=== PATIENT | male | born 1970 | race Caucasian/White ===

== ENCOUNTER 2020-02-14 13:17 | Emergency (ER) | payer BC ==
[2020-02-14] MEDS ORDERED: LABETALOL HCL INJ 20 MG/4 ML DISP.SYRIN IV ONE ×2 (13:25→14:59)
--- NOTE | 2020-02-14 13:28 | ER Document Report ---
ED Headache - General Chief Complaint: Headache Stated Complaint: HEADACHE Time Seen by Provider: 02/14/20 13:20 Notes: HPI: Patient is a 50-year-old male presents today with the onset about a week ago of an intermittent global headache. He denies any head trauma. Denies any double or blurry vision. Denies any neck pain, chest pain, weakness or numbness to the extremities, or lower extremity edema. Patient has no past medical history and has no primary care physician and takes no medications. EMS states that his blood pressure was 220/110. They did provide Toradol. Patient states that the headache waxes and wanes in intensity. No real aggravating or relieving factors. He describes the pain as "pain". Patient states that he has felt "dizzy" during the morning of the last 2 days and vomited once this morning. He states the headache is a 2 out of 10 at this time. ROS: See HPI All other review of systems reviewed and otherwise negative Reviewed vital signs and nursing note as charted by RN. PHYSICAL EXAM: CONSTITUTIONAL: Alert and oriented and responds appropriately to questions. Well-appearing; well-nourished HEAD: Normocephalic; atraumatic EYES: PERRL; full extraocular range of motion; no nystagmus ENT: Normal nose; no rhinorrhea; moist mucous membranes; pharynx without lesions noted NECK: Supple without meningismus; non-tender; no cervical lymphadenopathy, no masses CARD: Regular rate and rhythm; no murmurs; symmetric distal pulses RESP: Normal chest excursion without splinting or tachypnea; breath sounds clear and equal bilaterally ABD/GI: Normal bowel sounds; non-distended; soft, non-tender; no palpable organomegaly or masses BACK: The back appears normal and is non-tender to palpation EXT: Normal ROM in all joints; non-tender to palpation; no edema SKIN: No acute lesions noted NEURO: CN 2-12 intact; 5/5 bilateral upper and lower extremity strength with sensation intact to light touch; no past-pointing or gait disturbance PSYCH: The patient's mood and manner are appropriate. Grooming and personal hygiene are appropriate. - Related Data Allergies/Adverse Reactions: No Known Allergies Allergy (Verified 02/14/20 13:21) Past Medical History - Social History Smoking Status: Unknown if Ever Smoked Family History: Reviewed & Not Pertinent Physical Exam - Vital signs Vitals: Temp Pulse Resp BP Pulse Ox 97.9 F 71 13 197/124 H 100 02/14/20 13:22 02/14/20 13:22 02/14/20 13:22 02/14/20 13:22 02/14/20 13:22 Course - Re-evaluation Re-evalutation: 02/14/20 13:27 Given the history and physical examination with an intermittent headache to the entire global head, with vomiting this morning, on no medications with no known past history, with an extraordinarily elevated blood pressure, no focal neurological deficits, fevers, or head trauma, waxing and waning in intensity, with a blood pressure as recorded here, I do believe this is most likely hypertensive emergency. I do believe subarachnoid hemorrhage, bacterial meningitis, temporal arteritis, and acute angle-closure glaucoma to be much less likely. 02/14/20 14:28 Radiology called me and states that the patient appears to have a large cerebellar mass with some surrounding edema. Minimal herniation with no lateral dilation. Patient's headache is 2 out of 10. Blood pressure systolic has improved to 180. I have called neurosurgery at [facility]. 02/14/20 16:37 I did speak with the neurosurgeon at the hospital who would like a CT scan of the chest abdomen and pelvis to look for primary tumor. He would like the systolic blood pressure around 1 50-1 60. He had asked me to re-dose 10 mg of labetalol. We did perform this around an hour and a half ago with a systolic blood pressure now 160-170. I will provide a small dose of hydralazine as well. I will hold on a drip at this time. The CT scan of the chest abdomen and pelvis showed no obvious primary tumor. We pushed the images over to the neurosurgeon and the patient will be admitted under his service. - Vital Signs Vital signs: Temp Pulse Resp BP Pulse Ox 97.9 F 71 10 L 182/128 H 98 02/14/20 14:01 02/14/20 13:22 02/14/20 14:01 02/14/20 14:00 02/14/20 14:01 - Laboratory Result Diagrams: 02/14/20 13:35 02/14/20 13:35 Laboratory results interpreted by me: 02/14/20 02/14/20 13:35 13:35 Lymph % (Auto) 10.7 L Seg Neutrophils % 83.0 H Sodium 136.2 L Critical Care Note - Critical Care Note Total time excluding time spent on procedures (mins): 35 Discharge - Discharge Clinical Impression: Mass of cerebellum Condition: Fair Disposition: [facility]
[2020-02-14 13:57] LABS: ABSOLUTE BASOPHILS # (AUTO) 0.1 10^3/uL (0.0-0.2); ABSOLUTE LYMPHOCYTES (AUTO) 0.9 10^3/uL (0.5-4.7); ABSOLUTE MONOCYTES (AUTO) 0.4 10^3/uL (0.1-1.4); BASOPHILS % (AUTO) 0.9 % (0-2); EOSINOPHILS % (AUTO) 0.3 % (0-6); HEMATOCRIT 46.1 % (37.9-51.0); HEMOGLOBIN 16.5 g/dL (13.5-17.0); LYMPHOCYTES % (AUTO) 10.7 % (13-45); MEAN CORPUSCULAR HEMOGLOBIN 30.9 pg (27.0-33.4); MEAN CORPUSCULAR HGB CONC 35.7 g/dL (32.0-36.0); MEAN CORPUSCULAR VOLUME 86 fl (80-97); MONOCYTES % (AUTO) 5.1 % (3-13); PLATELET COUNT 253 10^3/uL (150-450); RED BLOOD COUNT 5.33 10^6/uL (4.35-5.55); RED CELL DISTRIBUTION WIDTH 12.8 % (11.5-14.0); TOTAL CELLS COUNTED % (AUTO) 100 %; WHITE BLOOD COUNT 8.5 10^3/uL (4.0-10.5)
[2020-02-14 14:17] LABS: ANION GAP 6 (5-19); BLOOD UREA NITROGEN 16 mg/dL (7-20); CALCIUM 9.3 mg/dL (8.4-10.2); CARBON DIOXIDE 24 mmol/L (22-30); CHLORIDE 106 mmol/L (98-107); GLUCOSE 106 mg/dL (75-110); POTASSIUM 4.4 mmol/L (3.6-5.0)
--- NOTE | 2020-02-14 14:19 | RADIOLOGY REPORT (SQ) ---
EXAM DESCRIPTION: CT HEAD WITHOUT IMAGES COMPLETED DATE/TIME: 02/14/2020 12:59 pm REASON FOR STUDY: 4; headache with elevated bp . COMPARISON: None. TECHNIQUE: Axial images acquired through the brain without intravenous contrast. Images reviewed wi th bone, brain and subdural windows. Additional sagittal and coronal reconstructions were generated. Images stored on PACS. All CT scanners at this facility use dose modulation, iterative reconstruction, and/or weight based d osing when appropriate to reduce radiation dose to as low as reasonably achievable (ALARA). [facility]: Dose Right [facility]: CareDose [facility]: Dose Right [facility]: Teradose 4D [facility]: [employer] RADIATION DOSE: CT Rad equipment meets quality standard of care and radiation dose reduction techniq ues were employed. CTDIvol: 53.2 mGy. DLP: 1070 mGy-cm. mGy. LIMITATIONS: None. FINDINGS: VENTRICLES: Normal size and contour. CEREBRUM: No masses. No hemorrhage. No midline shift. No evidence for acute infarction. Normal gra y/white matter differentiation. No areas of low density in the white matter. CEREBELLUM: There is edema and mass effect in the left cerebellar hemisphere with left to right midli ne shift and crowding at the foramen magnum consistent with mild herniation. Likely underlying mass at the inferior aspect of the left cerebellar hemisphere. There is also upward herniation with crowd ing at the mid brain. There is effacement of the 4th ventricle, with no enlargement of the 3rd or la teral ventricles at this time. EXTRAAXIAL SPACES: No fluid collections. No masses. ORBITS AND GLOBE: No intra- or extraconal masses. Normal contour of globe without masses. CALVARIUM: No fracture. PARANASAL SINUSES: Polypoid mucosal thickening in the right and left lateral wall of the maxillary si nus. No air-fluid levels. Remaining paranasal sinuses and mastoid air cells are clear. SOFT TISSUES: No mass or hematoma. OTHER: No other significant finding. IMPRESSION: 1. Left cerebellar mass with associated in edema and mass effect leading to mild upward and downward herniation in the posterior fossa. There is effacement of the 4th ventricle, with no development of hydrocephalus at this point. Neuro surgical consultation is recommended. 2. No intracranial hemorrhage or evidence of acute territorial infarct. EVIDENCE OF ACUTE STROKE: Findings discussed with on 02/14/2020 at 1410 hours. COMMENT: Quality ID # 436: Final reports with documentation of one or more dose reduction techniques (e.g., Automated exposure control, adjustment of the mA and/or kV according to patient size, use of iterative reconstruction technique) TECHNICAL DOCUMENTATION: JOB ID: [id number] 2010 [employer]- All Rights Reserved Reading location - IP/workstation name: [email or web address]
--- NOTE | 2020-02-14 16:11 | RADIOLOGY REPORT (SQ) ---
EXAM DESCRIPTION: CT CHEST WITH; CT ABD/PELVIS WITH IV ONLY IMAGES COMPLETED DATE/TIME: 02/14/2020 2:46 pm COMPARISON: CT head same date. CONTRAST TYPE AND DOSE: contrast/concentration: Isovue 350.00 mg/ml; Total Contrast Delivered: 100.0 ml; Total Saline Delivered: 72.0 ml RENAL FUNCTION: None required. The patient is less than 50 years old. TECHNIQUE: CT scan of the chest performed using helical scanning technique with dynamic intravenous contrast injection. Images reviewed with lung, soft tissue and bone windows. Reconstructed coronal a nd sagittal MPR images reviewed. All images stored on PACS. CT scan of the abdomen and pelvis performed with intravenous and oral contrast using helical scanning technique with dynamic intravenous contrast injection. Images reviewed with lung, soft tissue and b one windows. Reconstructed coronal and sagittal MPR images reviewed. Delayed images for evaluation of the urinary system also acquired and evaluated. All images stored on PACS. All CT scanners at this facility use dose modulation, iterative reconstruction, and/or weight based d osing when appropriate to reduce radiation dose to as low as reasonably achievable (ALARA). [facility]: Dose Right [facility]: CareDose [facility]: Dose Right [facility]: Teradose 4D [facility]: [employer] RADIATION DOSE: CT Rad equipment meets quality standard of care and radiation dose reduction techniq ues were employed. CTDIvol: 11.1 - 14.7 mGy. DLP: 1687 mGy-cm. . LIMITATIONS: None. FINDINGS: CHEST: AXILLAE: No adenopathy. CHEST WALL: No masses. No subcutaneous air. LUNGS AND PLEURA: The trachea has normal caliber and appearance. There is a surgical suture at the l eft lung apex consistent with prior resection. Asymmetric pleural/parenchymal scarring or solid nodu le at the right lung apex measuring 1.3 cm, indeterminate. Right apical and left medial subpleural b ullae and blebs. No focal consolidation or pleural effusion. No pneumothorax. THYROID: No masses or significant asymmetry. HILAR AND MEDIASTINAL STRUCTURES: No identified masses or abnormal nodes. AORTA AND GREAT VESSELS: No aneurysm. No dissection. PULMONARY ARTERIES: No identified pulmonary emboli. Study not optimized for the pulmonary arteries. HEART: No pericardial effusion. HARDWARE AND LIFELINES: None. BONES: No significant finding. OTHER: No other significant finding. ABDOMEN AND PELVIS: LIVER: Normal size and contour. No focal hepatic mass. Normal background appearance. Hepatic and p ortal veins are patent. No biliary ductal dilation. SPLEEN: Normal size. No focal lesions. PANCREAS: No masses. No significant calcifications. No adjacent inflammation or peripancreatic flui d collections. Pancreatic duct not dilated. GALLBLADDER: No identified stones by CT criteria. No inflammatory changes to suggest cholecystitis. ADRENAL GLANDS: No significant masses or asymmetry. RIGHT KIDNEY AND URETER: No solid masses. No significant calcifications. No hydronephrosis or hyd roureter. LEFT KIDNEY AND URETER: No solid masses. No significant calcifications. No hydronephrosis or hydr oureter. AORTA AND VESSELS: No aneurysm. No dissection. Renal arteries, SMA, celiac without stenosis. RETROPERITONEUM: No retroperitoneal adenopathy, hemorrhage or masses. LARGE AND SMALL BOWEL: There is colonic diverticulosis predominantly involving the sigmoid colon. No evidence of acute diverticulitis. No bowel obstruction. No bowel wall thickening. No significant inflammatory change. No ascites or pneumoperitoneum. APPENDIX: Normal. ABDOMINAL WALL: No hernia or masses. PERITONEAL CAVITY: No free air. No free fluid. No peritoneal implants or masses. PELVIS: No mass or free fluid. Normal bladder. BONES: No significant or acute findings. OTHER: No other significant finding. IMPRESSION: 1. No evidence of primary tumor or metastatic disease in the chest, abdomen or pelvis. 2. Colonic diverticulosis without evidence of diverticulitis. TECHNICAL DOCUMENTATION: JOB ID: [id number] Quality ID # [id number]: Final reports with documentation of one or more dose reduction techniques (e.g., Au tomated exposure control, adjustment of the mA and/or kV according to patient size, use of iterative reconstruction technique) 2010 [employer]- All Rights Reserved REASON FOR STUDY: 4; eval primary tumor 4; eval primary tumor. Mass in the left cerebellum on CT head. Previous lung resection for recurren t pneumonia. History of asbestos exposure. . Reading location - IP/workstation name: [id number]
[2020-02-14] MEDS ORDERED: HYDRALAZINE HCL INJ/PF 20 MG/1 ML SDV IV ONE (16:36)
[2020-02-14] MEDS ORDERED: MORPHINE SULFATE 10 MG/ML INJ IV ONE ×2 (17:28→19:37)
[2020-02-14 19:35] VITALS: BP 165/114
--- NOTE | 2020-02-14 19:38 | ER Document Report ---
Doctor's Note Notes: 02/14/20 19:38 [facility] crew is at bedside, patient continues to plan have a headache, states that the initial dose of 4 mg of morphine did not change his headache at all. Patient will be given a dose of 8 mg of morphine here to try and help with the headache. Patient is otherwise stable for transport.
[2020-02-14] MEDS ORDERED: ONDANSETRON HCL INJ/PF 4 MG/2 ML SDV IV ONE (19:49)
--- NOTE | 2020-02-14 21:18 | EKG REPORT ---
SEVERITY:- BORDERLINE ECG - SINUS RHYTHM PROBABLE LEFT ATRIAL ABNORMALITY : Confirmed by: Scot Harden MD 14-Feb-2020 21:17:43
== END 2020-02-14 19:31 | disposition short-term general hospital (02) ==
LOC: ER 13:17
DX: G93.89 Other specified disorders of brain (principal); R51 Headache; R42 Dizziness and giddiness; R11.10 Vomiting, unspecified
CPT/HCPCS: 93005; 96376; 99291; 96374; 96375; 36415; 85025; 80048; 70450; 71260; 74177; 93010; J0360; J3490; J2270; J2405

== ENCOUNTER 2020-04-17 20:27 | Emergency (ER) | payer BC ==
--- NOTE | 2020-04-17 22:08 | ER Document Report ---
ED Medical Screen (RME) - General Mode of Arrival: Ambulatory Information source: Patient - Related Data Home Medications: Amlodipine. dexamethasone. augmentin. Zofran. [place] - General Chief Complaint: Post Surgical Pain Stated Complaint: SURGICAL SITE SWELLING Time Seen by Provider: 04/17/20 22:02 Primary Care Provider: CAMILA RAMSEY MD [Primary Care Provider] - Follow up as needed Notes: Patient is a 50-year-old male comes emergency room complaining of left-sided neck swelling. Patient had a salivary gland removed on this past Saturday at [facility]. Patient states he was doing fine until around 2:30 PM this afternoon and started swelling and is gotten extensively much worse. He is hav ing a slight amount of difficulty swallowing and is very uncomfortable. He states he is really wanted just to know if he is cleared to go home and sleep and then see his surgeon first thing in the morning at 7 AM he just wants to make sure "I am not going to ". Physical examination: Patient is a well-nourished well-developed 50-year-old male who is in no apparent distress on physical exam he is currently handling his secretions and is not drooling. He does not appear to be in distress but appears to be slightly uncomfortable. Cardiac: Regular rate and rhythm no murmurs. Lungs: Clear to auscultation. Throat: Examination patient very concerned shows a very large amount of swelling to the left side of the neck that extends into the submental area as well. Visualization of the throat also shows that the left sided swelling around the tonsillar area with pustules noted. I have informed patient that it is my best opinion that he needs to have a CT of his neck to rule out a peritonsillar abscess on the left-hand side or the worst a abscess in the space-occupying area where the salivary gland was. I have informed him that I cannot 100% certain say this will not get bigger tonight and occlude his trachea. I have greeted and performed a rapid initial assessment of this patient. A comprehensive ED assessment and evaluation of the patient, analysis of test results and completion of the medical decision making process will be conducted by additional ED providers. Dictation of this chart was performed using voice recognition software; therefore, there may be some unintended grammatical errors. (GRETCHEN DANIELS) - Related Data Allergies/Adverse Reactions: No Known Allergies Allergy (Verified 02/14/20 13:21) Past Medical History - Social History Chew tobacco use (# tins/day): No Frequency of alcohol use: Rare Drug Abuse: None Physical Exam - Vital signs Vitals: Temp Pulse Resp BP Pulse Ox 98.2 F 86 16 143/93 H 98 04/17/20 20:32 04/17/20 20:32 04/17/20 20:32 04/17/20 20:32 04/17/20 20:32 Course - Vital Signs Vital signs: Temp Pulse Resp BP Pulse Ox 98.2 F 86 16 143/93 H 98 04/17/20 21:37 04/17/20 20:32 04/17/20 20:32 04/17/20 20:32 04/17/20 20:32 Doctor's Discharge - Discharge Referrals: CAMILA RAMSEY MD [Primary Care Provider] - Follow up as needed
--- NOTE | 2020-04-17 23:00 | ER Document Report ---
ED General - General Chief Complaint: Post Surgical Pain Stated Complaint: SURGICAL SITE SWELLING Time Seen by Provider: 04/17/20 22:02 Primary Care Provider: CAMILA RAMSEY MD [Primary Care Provider] - Follow up as needed Mode of Arrival: Ambulatory Information source: Patient Notes: This 50-year-old man presents to the emergency department with a history of s urgery at [facility] 04/13/2020. He had a left salivary gland removed. He was sent home, and was doing well until this afternoon when he had pain in the left salivary surgical site and increased swelling. He notes that he had a drain in place post surgery but was removed prior to his discharge. He took a picture of the site and has communicated with his surgeon in [place]. He is scheduled to go to the clinic in the morning. He was told to go to his local emergency department for evaluation. He denies difficulty swallowing and his airway is patent. Presently he denies pain. - Related Data Allergies/Adverse Reactions: No Known Allergies Allergy (Verified 02/14/20 13:21) Home Medications: Amlodipine. dexamethasone. augmentin. Zofran. [place] Past Medical History - General Information source: Patient - Social History Smoking Status: Former Smoker Chew tobacco use (# tins/day): No Frequency of alcohol use: Rare Drug Abuse: None Family History: Reviewed & Not Pertinent Review of Systems - Review of Systems Notes: Constitutional: Negative for fever. HENT: + Swelling left submandible region Eyes: Negative for visual changes. Cardiovascular: Negative for chest pain. Respiratory: Negative for shortness of breath. Gastrointestinal: Negative for abdominal pain, vomiting or diarrhea. Genitourinary: Negative for dysuria. Musculoskeletal: Negative for back pain. Skin: Negative for rash. Neurological: Negative for headaches, weakness or numbness. 10 point ROS negative except as marked above and in HPI. Physical Exam - Vital signs Vitals: Temp Pulse Resp BP Pulse Ox 98.2 F 86 16 143/93 H 98 04/17/20 20:32 04/17/20 20:32 04/17/20 20:32 04/17/20 20:32 04/17/20 20:32 - Notes Notes: PHYSICAL EXAMINATION: Physical Exam: General: Well-nourished well-developed in no acute distress HEENT: NC/AT, pupils equal round and reactive to light, MM moist,nares clear, oropharynx clear, airway patent Neck: supple, no adenopathy, no masses. Good range of motion, swelling in the left submandibular region sutures are intact, no hemorrhage through the surgical site, obvious swelling, soft fluctuance. Lungs: clear, no wheezing, no rales no rhonchi CVS: Regular rate and rhythm no murmur gallop or rub Abdomen: Soft, active, nontender, no masses, no hepatosplenomegaly Ext: No edema, clubbing or cyanosis. Neuro: Alert and responsive, moving all 4 extremities on command, cranial nerves intact, no focal findings Skin: Intact no open lesions, no rash PSYCH: Normal mood, normal affect. Course - Re-evaluation Re-evalutation: 04/17/20 23:01 Patient with swelling at the surgical site, sutures intact, CT with IV contrast ordered, a cold pack is placed on the surgical site. We will await the findings of the scan and assess quantity of swelling and any likely or possible compromise. - Vital Signs Vital signs: Temp Pulse Resp BP Pulse Ox 98.2 F 86 16 143/93 H 98 04/17/20 21:37 04/17/20 20:32 04/17/20 20:32 04/17/20 20:32 04/17/20 20:32 - Laboratory Result Diagrams: 04/17/20 23:25 04/17/20 23:25 Laboratory results interpreted by me: 04/17/20 04/17/20 23:25 23:25 WBC 19.6 H RDW 14.2 H Seg Neuts % (Manual) 88 H Lymphocytes % (Manual) 7 L Abs Neuts (Manual) 17.2 H Sodium 132.2 L Glucose 134 H I have reviewed laboratory data and used this information for the treatment decisions regarding the patient., Leukocytosis, on steroids. - Diagnostic Test Radiology reviewed: Image reviewed, Reports reviewed Radiology results interpreted by me: 04/18/20 00:59 CT soft tissue neck with IV contrast: Left lateral parotid area collection of fluid, postoperative hematoma/seroma versus infectious fluid collection, no airway compromise. Discharge - Discharge Clinical Impression: Encounter for postoperative wound check Postoperative complication Qualifiers: Surgical complication system/body Area: subcutaneous tissue Surgical complication type: other Qualified Code(s): L76.82 - Other postprocedural compli cations of skin and subcutaneous tissue Condition: Good Disposition: HOME, SELF-CARE Instructions: Hematoma ([facility]) Additional Instructions: You were seen in the emergency department tonight with swelling in the left submandibular region of the neck at your surgical site. Please keep the appointment with your surgeon tomorrow morning. Please take a copy of the CT report with you to the appointment. If you have other complications or other concerns you may return to the emergency department for further evaluation and treatment HOME CARE INSTRUCTIONS & INFORMATION: Thank you for choosing us for your medical needs. We hope you're satisfied with the care you received. After you leave, you must properly care for your problem and, at the same time, observe its progress. Any condition can change. Some illnesses can change rapidly over hours or days. If your condition worsens, return to the Emergency Department or see your physician promptly. ABOUT YOUR X-RAYS AND EKG'S: If you had an EKG or X-rays taken, they have been read by the Emergency Physician. The X-rays and EKG's will also be read by a Radiologist or Special Assets Officer within 24 hours. If discrepancies are noted, you will be notified by telephone. Please be certain the ED has a correct telephone number & address where you can be reached. Also, realize that some fractures or abnormalities do not show up on initial X-rays. If your symptoms continue, see your physician. ABOUT YOUR LABORATORY TEST: If you had laboratory tests, the results have been reviewed by the Emergency Physician. Some test results (for example cultures) may not be available for several days. You will be contacted if any test result shows you need additional treatment. Please be certain the ED has a correct telephone number and address where you can be reached. ABOUT YOUR MEDICATIONS: You will receive instructions on how to take your medicine on the prescription label you receive. Additional information may be provided by the Pharmacy. If you have questions afterwards, call the ED for clarification or further instructions. Some prescribed medications may cause drowsiness. Do not perform tasks such as driving a car or operating machinery without consulting your Pharmacist. If you feel you need a refill of pain medication, your condition will need re-evaluation. Please do not call for a refill of any medication. ABOUT YOUR SIGNATURE: Signature of this document acknowledges to followin. Understanding that you received emergency treatment and that you may be released before al medical problems are known or treated. Please be certain the ED has a correct phone number & address where you can be reached. 2. Acknowledgement that you will arrange for follow-up care as recommended. 3. Authorization for the Emergency Physician to provide information to your follow-up Physician in order to maximize your care. AT ANY TIME, IF YOUR SYMPTOMS CHANGE SIGNIFICANTLY OR WORSEN OR YOU DEVELOP NEW SYMPTOMS, RETURN TO THE EMERGENCY DEPARTMENT IMMEDIATELY FOR RE-EVALUATION. OUR GOAL IS TO PROVIDE EXCELLENT MEDICAL CARE! WE HOPE THAT WE HAVE MET YOUR EXPECTATIONS DURING YOUR EMERGENCY DEPARTMENT VISIT AND THAT YOU FEEL YOU HAVE RECEIVED EXCELLENT CARE! Referrals: CAMILA RAMSEY MD [Primary Care Provider] - Follow up as needed
[2020-04-17 23:46] LABS: HEMATOCRIT 39.9 % (37.9-51.0); HEMOGLOBIN 14.3 g/dL (13.5-17.0); MEAN CORPUSCULAR HEMOGLOBIN 31.3 pg (27.0-33.4); MEAN CORPUSCULAR HGB CONC 35.8 g/dL (32.0-36.0); MEAN CORPUSCULAR VOLUME 87 fl (80-97); PLATELET COUNT 253 10^3/uL (150-450); RED BLOOD COUNT 4.57 10^6/uL (4.35-5.55); RED CELL DISTRIBUTION WIDTH 14.2 % (11.5-14.0); WHITE BLOOD COUNT 19.6 10^3/uL (4.0-10.5)
[2020-04-17 23:57] LABS: ANION GAP 5 (5-19); BLOOD UREA NITROGEN 15 mg/dL (7-20); CALCIUM 8.4 mg/dL (8.4-10.2); CARBON DIOXIDE 23 mmol/L (22-30); CHLORIDE 104 mmol/L (98-107); GLUCOSE 134 mg/dL (75-110); POTASSIUM 4.2 mmol/L (3.6-5.0)
[2020-04-18 00:14] LABS: ABSOLUTE LYMPHOCYTES# (MANUAL) 1.4 10^3/uL (0.5-4.7); BASOPHILS % (MANUAL) 0 % (0-2); EOSINOPHILS % (MANUAL) 0 % (0-6); LYMPHOCYTES % (MANUAL) 7 % (13-45); MONOCYTES % (MANUAL) 5 % (3-13); SEGMENTED NEUTROPHILS % (MAN) 88 % (42-78); TOTAL CELLS COUNTED 100
[2020-04-18 00:16] LABS: ANISOCYTOSIS SLIGHT; OVALOCYTES SLIGHT; PLATELET COMMENT ADEQUATE; POIKILOCYTOSIS SLIGHT; TOXIC GRANULATION 1+; TOXIC VACUOLATION PRESENT
--- NOTE | 2020-04-18 00:51 | RADIOLOGY REPORT (SQ) ---
EXAM DESCRIPTION: CT NECK WITH IV CONTRAST COMPLETED DATE/TME: 04/17/2020 22:03 CLINICAL INDICATION: 50-year-old male with left-sided abscess. COMPARISON: None. TECHNIQUE: CT neck soft tissues were performed following intravenous administration of contrast. Multiplanar reformatted images were provided. This exam was performed according to our departmental dose optimization program which includes use of automated exposure control, adjustment of the mA and/or kV according to patient size and/or use of iterative reconstruction technique. FINDINGS: Limited evaluation through the skull base reveals no acute intracranial abnormalities or abnormal post contrast enhancement. The visualized vessels are patent and normal in caliber. Few small lymph nodes are scattered throughout the neck soft tissues bilaterally none of which are pathologically enlarged by CT measurement criteria. The bilateral parotid, bilateral submandibular and thyroid glands are within normal limits. The nasal cavity, posterior nasopharynx, oral cavity, oropharynx, larynx and hypopharynx are within normal limits without abnormal enhancement mass or mass effect. The airways are patent. Diffuse soft tissue swelling is identified at the level of the left-sided perimandibular and per-parotid soft tissues. Multiple surgical clips are identified present within the medial parotid space compatible with recent postoperative change. Fluid collections identified lateral and inferior to the parotid gland just inferiorly to the parotid gland measuring 2.9 x 2.7 cm with slight peripheral enhancement raising the concern for fluid collection, including postoperative hematoma/seroma or infectious process including abscess. The collection measures 6.3 cm in craniocaudal dimension, (series 201, image 30). The osseous structures reveal degenerative change of the cervical spine. The bilateral lung apices reveal innumerable bilateral apical cysts and paraseptal cysts compatible with emphysema. Scarring and reticulation present at the level of the bilateral lung apices. No adjacent destructive rib lesion or soft tissue mass is clearly identified. High density at the level of the LEFT lung apex may reflect calcification versus surgical suture material. IMPRESSION: Focal fluid collection is identified coursing laterally to the parotid gland with differential and details as above.
[2020-04-18 01:17] VITALS: BP 136/90
== END 2020-04-18 01:25 | disposition home or self-care (01) ==
LOC: ER 20:27
DX: L76.82 Other postprocedural complications of skin and subcutaneous tissue (principal); R22.1 Localized swelling, mass and lump, neck; Y83.8 Other surgical procedures as the cause of abnormal reaction of the patient, or of later complication, without mention of misadventure at the time of the procedure; Z79.899 Other long term (current) drug therapy; Z87.891 Personal history of nicotine dependence
CPT/HCPCS: 36415; 70491; 80048; 85025; 87070; 87880; 99284

== ENCOUNTER → 2020-05-04 | Outpatient (CLI) | payer BC | LOC: RT 11:53 | PROVIDERS: ATTEND Thoracic Surgery (Cardiothoracic Vascular Surgery) | DX: R91.8 Other nonspecific abnormal finding of lung field (principal) | CPT/HCPCS: 94010; 94727; 94729 ==